=== PATIENT | male | born 1965 | race Two or more races ===

== ENCOUNTER 2016-11-05 02:05 | Emergency (ER) | payer SELFPAY ==
[~2016-11-05] VITALS: Ht 167.6 cm; Wt 63.5 kg
[~2016-11-05 02:05] MED LIST: BACITRACIN ZIN120 GM TP; CYCLOBENZAPRINE10 MG ORAL; IBUPROFEN600 MG ORAL; NKM
--- NOTE | 2016-11-05 02:17 | Emergency Room Report ---
History of Present Illness General Chief Complaint: Altered Level of Consciousness Source: Family Member, Medical Record, EMS Present Illness HPI This is a 50-year-old male who is an alcoholic. Also has history of cirrhosis. Was brought in by EMS for altered mental status. He has been drinking heavily tonight. Last seen normal was around 6 hours ago. Family said this time drinking. When he checked on him again he was unresponsive. They could not wake him up. So they called 911. Unable to get history from the patient. He appeared to be cold with sonorous respiration. Also has a cheap bottle of vodka next to him. . Allergies: Coded Allergies: No Known Allergies (Verified , 12/21/08) Patient History Past Medical History: see triage record, old chart reviewed Past Surgical History: other Pertinent Family History: none Social History: Reports: alcohol use Immunizations: other Reviewed Nursing Documentation: PMH: Agreed, PSxH: Agreed Nursing Documentation-PMH Hx Hypertension: No Review of Systems All Other Systems: limited - Secondary to intoxication Physical Exam Vital Signs Date Time Temp Pulse Resp B/P Pulse Ox O2 Delivery O2 Flow Rate FiO2 11/05/16 02:00 93.7 67 18 100/46 99 Room Air vitals with hypothermia Sp02 EP Interpretation: reviewed, normal General Appearance: moderate distress, cachetic, other - unresponsive, Chronically Ill Head: normocephalic, other - mild redness to left occiput. no abrasion or break in skin. Eyes: bilateral eye other - left pupil 4mm. right pupil 6mm. very sluggish ENT: normal pharynx Neck: full range of motion, supple, no meningismus Respiratory: chest non-tender, lungs clear, normal breath sounds Cardiovascular #1: regular rate, rhythm, no murmur Gastrointestinal: normal bowel sounds, non tender, no mass, no organomegaly, no bruit, non-distended Musculoskeletal: back normal, normal range of motion Neurologic: other - unresponsive Skin: warm/dry Procedures Critical Care Time Critical Care Time Critical care is mandated in this patient who presented with comatose due to intracranial bleed. Patient require my urgent intervention to attenuate the risks of neurological collapse which may lead to cardiovascular collapse and . Critical care time is 35 minutes excluding any reportable procedure. Critical care time included evaluation, multiple reevaluation, looking at old charts, interpreting laboratory and diagnostic data, discussing case with patient and family and consultants, and charting. Intubation Intubation : Consent: Emergent Intubation Method: orotracheal Tube Size (cm): 7.5 Breath Sounds after Intubation: equal Intubation Complications: no complications Post Intubation Xray: Yes Progress/Xray Impression: eTT in good position. no ptx Attempts: One Patient Tolerated: Well Complications: None Medical Decision Making Diagnostic Impression: Primary Impression: Intracranial bleeding Additional Impressions: Subdural hematoma, acute Alcohol intoxication Qualified Codes: F10.920 - Alcohol use, unspecified with intoxication, uncomplicated Alcoholic liver disease Hyperglycemia Hypothermia Qualified Codes: T68.XXXA - Hypothermia, initial encounter ER Course This is an unfortunate gentleman who is an alcoholic presents in comatose secondary to severe extensive intracranial bleed. Prognosis extremely poor. I discussed the case with Dr. Modesto Comer, trauma surgeon at [facility]. He accepted the patient for transfer to [place]. I also discussed the case with Dr. Mahan, boiler fireman at [facility]. She agreed with intubation, keppra and FFP. Also reccommends platlets transfusion and manitol. Unfortunately, we can I did elect here. He has me from the [facility]. There was no mannitol in the ER. Nursing log sorting supervisor was unable to get mannitol from the pharmacy because there was no gilbert. Patient was transferred to [facility] in critical condition. Laboratory Tests Test 11/05/16 02:15 11/05/16 02:30 White Blood Count 4.7 K/UL (4.8-10.8) L Red Blood Count 3.99 M/UL (4.70-6.10) L Hemoglobin 13.7 G/DL (14.2-18.0) L Hematocrit 40.0 % (42.0-52.0) L Mean Corpuscular Volume 100 FL (80-99) H Mean Corpuscular Hemoglobin 34.3 PG (27.0-31.0) H Mean Corpuscular Hemoglobin Concent 34.2 G/DL (32.0-36.0) Red Cell Distribution Width 15.2 % (11.6-14.8) H Platelet Count 37 K/UL (150-450) L Mean Platelet Volume 8.7 FL (6.5-10.1) Neutrophils (%) (Auto) % (45.0-75.0) Lymphocytes (%) (Auto) % (20.0-45.0) Monocytes (%) (Auto) % (1.0-10.0) Eosinophils (%) (Auto) % (0.0-3.0) Basophils (%) (Auto) % (0.0-2.0) Urine Color Yellow Urine Appearance Clear Urine pH 7 (4.5-8.0) Urine Specific [place] 1.005 (1.005-1.035) Urine Protein Negative (NEGATIVE) Urine Glucose (UA) Negative (NEGATIVE) Urine Ketones Negative (NEGATIVE) Urine Occult Blood Negative (NEGATIVE) Urine Nitrite Negative (NEGATIVE) Urine Bilirubin Negative (NEGATIVE) Urine Urobilinogen Normal MG/DL (0.0-1.0) Urine Leukocyte Esterase Negative (NEGATIVE) Sodium Level 141 mEQ/L (135-145) Potassium Level 3.1 mEQ/L (3.4-4.9) L Chloride Level 95 mEQ/L (98-107) L Carbon Dioxide Level 19 mEQ/L (20-30) L Anion Gap 27 (5-15) H Blood Urea Nitrogen 6 mg/dL (7-23) L Creatinine 0.8 mg/dL (0.7-1.2) Estimat Glomerular Filtration Rate > 60 mL/min (>60) Glucose Level 224 mg/dL (74-106) H Calcium Level 8.3 mg/dL (8.6-10.2) L Total Bilirubin 4.6 mg/dL (0.0-1.2) H Direct Bilirubin 2.7 mg/dL (0.1-0.3) H Aspartate Amino Transf (AST/SGOT) 233 U/L (5-40) H Alanine Aminotransferase (ALT/SGPT) 48 U/L (3-41) H Alkaline Phosphatase 116 U/L (40-129) Total Protein 7.5 g/dL (6.6-8.7) Albumin 3.7 g/dL (3.5-5.2) Globulin 3.8 g/dL Albumin/Globulin Ratio 0.9 (1.0-2.7) L Lipase 32 U/L (< 60) Urine Opiates Screen Negative (NEGATIVE) Urine Barbiturates Screen Negative (NEGATIVE) Phencyclidine (PCP) Screen Negative (NEGATIVE) Urine Amphetamines Screen Negative (NEGATIVE) Urine Benzodiazepines Screen Negative (NEGATIVE) Urine Cocaine Screen Negative (NEGATIVE) Urine Marijuana (THC) Screen Negative (NEGATIVE) Serum Alcohol 476 mg/dL Prothrombin Time 12.9 SEC (9.30-11.50) H Prothromb Time International Ratio 1.2 (0.9-1.1) H Activated Partial Thromboplast Time 30 SEC (23-33) Lab Results Impression labs with severe abnormality Rhythm Strip Diag. Results EP Interpretation: yes Rate: 65 Rhythm: NSR, no PVC's, no ectopy Chest X-Ray Diagnostic Results Chest X-Ray Diagnostic Results : Chest X-Ray Ordered: Yes # of Views/Limited/Complete: 1 View Indication: Other - Post intubation EP Interpretation: Yes Interpretation: no consolidation, no effusion, no pneumothorax, other - Endotracheal tube in good position Impression: Other - satisfactory endotracheal intubation Interpreting ER Provider: Electronically signed CT/MRI/US Diagnostic Results CT/MRI/US Diagnostic Results : Imaging Test Ordered: CT head Impression Read by radiologist. Extensive intracranial hemorrhage including a large right cerebral subdural hematoma. 3 mm diameter. 2.2 cm [id number] midline shift. Last Vital Signs Date Time Temp Pulse Resp B/P Pulse Ox O2 Delivery O2 Flow Rate FiO2 11/05/16 02:00 93.7 67 18 100/46 99 Room Air Status: unchanged Disposition: XFER SHT-TRM HOSP Condition: Critical PETER GARCIA M.D. Nov 05, 2016 02:17
[2016-11-05] MEDS ORDERED: UNOBMED (02:20)
[2016-11-05 02:29] LABS: APPEARANCE,URINE CLEAR; KETONES,URINE NEGATIVE (NEGATIVE); LEUKOCYTE ESTERASE ,URINE NEGATIVE (NEGATIVE); NITRITE,URINE NEGATIVE (NEGATIVE); PH,URINE 7 (4.5-8.0); PROTEIN,URINE NEGATIVE (NEGATIVE); UROBILINOGEN,URINE NORMAL MG/DL (0.0-1.0)
[2016-11-05 02:30] VITALS: BP 96/55
[2016-11-05 02:32] LABS: MEAN CORPUSCULAR HEMOGLOBIN 34.3 PG (27.0-31.0); MEAN CORPUSCULAR HGB CONC 34.2 G/DL (32.0-36.0); MEAN CORPUSCULAR VOLUME 100 FL (80-99); MEAN PLATELET VOLUME 8.7 FL (6.5-10.1); RED BLOOD COUNT 3.99 M/UL (4.70-6.10); RED CELL DISTRIBUTION WIDTH 15.2 % (11.6-14.8); WHITE BLOOD COUNT 4.7 K/UL (4.8-10.8)
[2016-11-05 02:34] LABS: PLATELET COUNT 37 K/UL (150-450)
[2016-11-05] MEDS ORDERED: levETIRAcetam 500mg vial IV ONE (02:39)
[2016-11-05 02:44] VITALS: BP 105/67
[2016-11-05] MEDS ORDERED: levETIRAcetam 500mg/NS100ml 100 ML IVPB ONE (02:45)
[2016-11-05 02:57] LABS: PROTHROMBIN TIME 12.9 SEC (9.30-11.50)
[2016-11-05 02:58] LABS: INR 1.2 (0.9-1.1)
[2016-11-05 03:45] VITALS: BP 94/54
[2016-11-05 04:15] LABS: ALANINE AMINOTRANSFERASE 48 U/L (3-41); ALBUMIN/GLOBULIN RATIO 0.9 (1.0-2.7); ALCOHOL 476 mg/dL; ANION GAP 27 (5-15); ASPARTATE AMINO TRANSFERASE 233 U/L (5-40); CALCIUM 8.3 mg/dL (8.6-10.2); CARBON DIOXIDE 19 mEQ/L (20-30); CHLORIDE 95 mEQ/L (98-107); CREATININE 0.8 mg/dL (0.7-1.2); GLOMERULAR FILTRATION RATE > 60 mL/min (>60); HEMOLYSIS 6; LIPASE 32 U/L (< 60); POTASSIUM 3.1 mEQ/L (3.4-4.9); SODIUM 141 mEQ/L (135-145); TOTAL PROTEIN 7.5 g/dL (6.6-8.7)
[2016-11-05 04:41] LABS: BILIRUBIN,DIRECT 2.7 mg/dL (0.1-0.3)
--- NOTE | 2016-11-05 08:26 | Diagnostic Imaging Report ---
Indications: Altered mental status Technique: Continuous helical CT imaging of the brain was performed with automatic exposure control on a Siemens sensation [address] scanner. Axial, coronal images were reconstructed at 5 mm slice thickness and interval. CTDI volume(s): 70 mGy Total DLP: 1410 mGy-cm Findings: Comparison: 09/13/2006 Large hyperattenuating subdural hematoma is present over the right cerebral hemisphere convexity, measuring up to 25 mm in diameter. Additional hyperattenuating subdural blood is present in the interhemispheric fissure and over the tentorium cerebelli bilaterally. 1 cm hyperattenuating hematoma is present in the periphery of the left frontal lobe surrounding low attenuation. Multiple small linear foci of hyperattenuating blood are present within bilateral cerebral hemispheric peripheral sulci. One or more small foci of hyperattenuating blood within the brainstem cannot be excluded. Basal cisterns, peripheral sulci, and the ventricular system are diffusely effaced, aside from dilation of the posterior and temporal horns of the left lateral ventricle. Small amount of hyperattenuating blood is present within the dependent portion of the left lateral ventricle. Midline structures are shifted leftward by up to 26 mm. Anterior subfalcine herniation is present. Transtentorial herniation of the right uncus may be present as well, though this cannot be ascertained. Bone window images demonstrate no evidence of acute skull fracture. Chronic appearing deformity of nasal bone, incompletely imaged. Visualized paranasal sinuses, bilateral mastoid air cells clear. IMPRESSION: Multi-compartmental acute hemorrhage within the calvarial vault, dominated by a large right convexity subdural hematoma, as described. Additional subdural blood in interhemispheric fissure, over tentorium cerebelli. Acute intraparenchymal hematoma left frontal lobe periphery with surrounding edema. Questionable small foci of acute intraparenchymal blood and brainstem. Bilateral peripheral acute subarachnoid hemorrhage. Small amount of intraventricular hemorrhage. All are likely posttraumatic in nature. Associated marked mass effect and leftward midline shift as described, with anterior subfalcine, imminent or actual right uncal herniation Emergency neurosurgery consultation recommended. This correlates with [facility] preliminary report, which indicates that critical results were communicated by [facility] personnel to ER physician shortly after completion of exam..
--- NOTE | 2016-11-05 09:58 | Diagnostic Imaging Report ---
Indications: Shortness of breath Technique: Portable AP chest Findings: Comparison: 12/20/2008 Endotracheal tube has been placed, tip 5 cm above justa. Heart size, pulmonary vasculature remain within normal limits. Lungs, pleura remain clear. Mild elongation aortic arch again noted. IMPRESSION: Endotracheal tube in good position Otherwise no evidence of acute cardiopulmonary disease, unchanged Stable prominence of aortic arch, likely chronic hypertensive in nature
== END 2016-11-05 03:45 | disposition short-term general hospital (02) ==
LOC: EDBD 02:05 → EMR 02:16
DX: S06.5X9A Traumatic subdural hemorrhage with loss of consciousness of unspecified duration, initial encounter (principal); I61.9 Nontraumatic intracerebral hemorrhage, unspecified; F10.920 Alcohol use, unspecified with intoxication, uncomplicated; K70.9 Alcoholic liver disease, unspecified; R73.9 Hyperglycemia, unspecified; T68.XXXA Hypothermia, initial encounter; X58.XXXA Exposure to other specified factors, initial encounter; Y93.9 Activity, unspecified; Y92.9 Unspecified place or not applicable
CPT/HCPCS: 31500; 36415; 36430; 70450; 71010; 80053; 80300; 81003; 82248; 83690; 85025; 85610; 85730; 86900; 86901; 86927; 94002; 94664; 96360; 96365; 96374; 96375; 99291; G0480; 80329